=== PATIENT | male | born 1950 | race Caucasian/White ===

== ENCOUNTER 2017-10-27 02:37 | Outpatient (CLI) | payer MEDICARE, MEDICAID ==
[~2017-10-27 02:37] MED LIST: ASPI-1265 PO; ATOR20TA PO; CHOL100046 PO; CLON-528 PO; GABA-532 PO; HYDR12.5 PO; INSU100V12 SQ; LOSA100T28 PO; METO25TA6 PO; MULT-1179 PO; OMEP20CA10 PO; SITA50TA PO; VARE0.5T PO; VIT1TABL69 PO; [UNRECOGNIZED DRUG - CODE]
== END 2017-10-27 23:59 | disposition home or self-care (01) ==
LOC: DIABETIC 02:37
PROVIDERS: ATTEND Family Medicine
DX: E11.9 Type 2 diabetes mellitus without complications (principal); I10 Essential (primary) hypertension; J44.9 Chronic obstructive pulmonary disease, unspecified; F17.200 Nicotine dependence, unspecified, uncomplicated; Z86.19 Personal history of other infectious and parasitic diseases
CPT/HCPCS: G0108

== ENCOUNTER 2017-11-23 09:34 | Outpatient (CLI) | payer MEDICARE, MEDICAID ==
[~2017-11-23] VITALS: Ht 172.7 cm; Wt 95.0 kg
[2017-11-23 11:53] LABS: BASOPHILS # (AUTO) 0.1 X10'3 (0-0.2); BASOPHILS % (AUTO) 0.6 % (0-1); EOSINOPHILS # (AUTO) 0.7 X10'3 (0-0.9); EOSINOPHILS % (AUTO) 6.5 % (0-6); LYMPHOCYTES # (AUTO) 2.3 X10'3 (1.1-4.8); LYMPHOCYTES % (AUTO) 23.1 % (21-51); MEAN CORPUSCULAR HEMOGLOBIN 30.7 PG (27.0-31.0); MEAN CORPUSCULAR HGB CONC 33.4 % (33.0-36.5); MEAN PLATELET VOLUME 9.4 FL (7.4-10.4); MONOCYTES # (AUTO) 0.8 X10'3 (0-0.9); MONOCYTES % (AUTO) 8.2 % (2-12); NEUTROPHILS # (AUTO) 6.2 X10'3 (1.8-7.7); NEUTROPHILS % (AUTO) 61.6 % (42-75); PRE OP HEMATOCRIT 37.6 % (42.0-52.0); PRE OP HEMOGLOBIN 12.6 g/dL (14.0-17.9); PRE OP PLATELET COUNT 227 X10'3 (140-440); RED BLOOD COUNT 4.09 X10'6 (4.70-6.10); RED CELL DISTRIBUTION WIDTH 12.6 % (11.5-14.5)
[2017-11-23 12:05] LABS: PRE OP PROTIME 10.6 SECONDS (9.0-12.0)
[2017-11-23 12:15] LABS: ALBUMIN 4.1 G/DL (3.4-5.0); ALBUMIN/GLOBULIN RATIO 0.9 (1.1-1.5); ALKALINE PHOSPHATASE 107 IU/L (46-116); BLOOD UREA NITROGEN 58 MG/DL (7-18); BUN/CREATININE RATIO 12.3 (5.4-32.0); CALCIUM 9.8 MG/DL (8.5-10.1); CHLORIDE 101 MMOL/L (99-107); CREATININE 4.73 MG/DL (0.60-1.10); HEMOGLOBIN A1C 6.7 % (4.5-6.2); PRE OP ALT 14 U/L (30-65); PRE OP ANION GAP 10 (8-16); PRE OP AST 20 U/L (10-37); PRE OP BILIRUB, TOTAL 0.3 MG/DL (0.0-1.0); PRE OP GLUCOSE 164 MG/DL (70-104); PRE OP SODIUM 138 MMOL/L (135-145); TOTAL CARBON DIOXIDE 27.2 MMOL/L (24-32); TOTAL PROTEIN 8.8 G/DL (6.4-8.2); eGFR 12 ML/MIN
[2017-11-23 12:36] LABS: CLARITY,URINE CLEAR (Clear); COLOR,URINE STRAW (Yellow); GLUCOSE, URINE 100 mg/dl (Neg); KETONES,URINE NEGATIVE (Neg); LEUKOCYTE ESTERASE ,URINE NEGATIVE (Neg); NITRITES, URINE NEGATIVE (Neg); OCCULT BLOOD,URINE SMALL (Neg); PROTEIN,URINE 100 mg/dl (Neg); UROBILINOGEN,URINE 0.2 E.U/dL (0.2-1.0)
[2017-11-23 12:44] LABS: UA COLLECTION TYPE CLN CATCH MIDSTREAM
[2017-11-23 12:56] LABS: COARSE GRANULAR CAST 0-3 /LPF (NEGATIVE); HYALINE CASTS 0-3 /LPF (NEGATIVE); MUCUS STRANDS NONE SEEN /LPF (Neg); SQUAMOUS EPITHELIAL CELL,UR FEW /LPF (FEW); TRANSITIONAL EPI CELLS,URINE FEW /HPF
[2017-11-23 12:57] LABS: BACTERIA,URINE NONE SEEN /HPF (Neg); RBC,URINE NONE SEEN /HPF (0-2); RENAL CELLS, URINE FEW /HPF; WBC,URINE 0-4 /HPF (0-4)
[2017-11-23] MEDS ORDERED: TRAM50TA2 PO (13:01)
[2017-11-23] MEDS ORDERED: FOLI1TAB16 PO (13:03)
[2017-11-23] MEDS ORDERED: SERT25TA PO (13:04)
[2017-11-23] MEDS ORDERED: LANTUS SQ (13:18)
[2017-11-23] MEDS ORDERED: LINA5TAB4 PO (13:21)
[2017-11-24] MEDS ORDERED: normal saline 500ml IV soln 500 ML IV SCH (15:30)
[2017-11-25] MEDS ORDERED: ceFOXitin 2 GM ADDvantage bag 100 ML IV ONE (05:30)
[2017-11-25] MEDS ORDERED: famotidine 20mg tablet PO ONE (05:30)
[2017-11-25] MEDS ORDERED: metoprolol tartrate 12.5mg (1/2 tablet) PO ONE (05:30)
== END 2017-11-23 23:59 | disposition home or self-care (01) ==
LOC: PRE-OP 09:34 → EDSTATUS 11-25 08:30
PROVIDERS: ATTEND Surgery
DX: Z01.818 Encounter for other preprocedural examination (principal); R94.31 Abnormal electrocardiogram [ECG] [EKG]; B19.20 Unspecified viral hepatitis C without hepatic coma; E11.22 Type 2 diabetes mellitus with diabetic chronic kidney disease; I12.0 Hypertensive chronic kidney disease with stage 5 chronic kidney disease or end stage renal disease; N18.5 Chronic kidney disease, stage 5; J45.909 Unspecified asthma, uncomplicated; D64.9 Anemia, unspecified; E11.41 Type 2 diabetes mellitus with diabetic mononeuropathy; Z79.891 Long term (current) use of opiate analgesic; Z87.891 Personal history of nicotine dependence; Z68.24 Body mass index [BMI] 24.0-24.9, adult; Z20.1 Contact with and (suspected) exposure to tuberculosis
CPT/HCPCS: 36415; 71046; 80053; 81001; 83036; 85025; 85610; 85730; 93005; J7030

== ENCOUNTER 2017-12-21 10:09 | Outpatient (CLI) | payer MEDICARE, MEDICAID ==
[~2017-12-21 10:09] MED LIST changes: -CHOL100046 PO; -CLON-528 PO; +FOLI1TAB16 PO; -HYDR12.5 PO; -INSU100V12 SQ; +LANTUS SQ; +LINA5TAB4 PO; +SERT25TA PO; -SITA50TA PO; +TRAM50TA2 PO; -VARE0.5T PO; -[UNRECOGNIZED DRUG - CODE]
== END 2017-12-21 23:59 | disposition home or self-care (01) ==
LOC: VAS 10:09
PROVIDERS: ATTEND Surgery
DX: Z01.810 Encounter for preprocedural cardiovascular examination (principal); E11.22 Type 2 diabetes mellitus with diabetic chronic kidney disease; I12.0 Hypertensive chronic kidney disease with stage 5 chronic kidney disease or end stage renal disease; N18.6 End stage renal disease; J44.9 Chronic obstructive pulmonary disease, unspecified; F17.200 Nicotine dependence, unspecified, uncomplicated; Z86.19 Personal history of other infectious and parasitic diseases
CPT/HCPCS: 93930; 93970

== ENCOUNTER 2018-01-13 07:43 | Day surgery (SDC) | payer MEDICARE, MEDICAID ==
[2018-01-13] VITALS (8 sets, daily range): BP systolic 124–161; BP diastolic 62–69
[~2018-01-13] VITALS: Ht 172.7 cm; Wt 76.7 kg
[~2018-01-13 07:43] MED LIST changes: +DOCUMENT DATE & TIME OF BETA-BLOCKER PO ONE; +cefazolin/dext.iso 2gm/50ml 50 ML IV ONE; +famotidine 20mg tablet PO ONE; +ringers solution, lacted 1,000 ML IV SCH
[2018-01-13] MEDS ORDERED: LIDOcaine 1% (10mg/ml) 2ml vial ONE (08:23)
[2018-01-13 09:03] LABS: BASOPHILS % (AUTO) 0.6 % (0-1); EOSINOPHILS # (AUTO) 0.9 X10'3 (0-0.9); EOSINOPHILS % (AUTO) 10.5 % (0-6); HEMATOCRIT 31.3 % (42.0-52.0); HEMOGLOBIN 10.6 g/dl (14.0-17.9); LYMPHOCYTES # (AUTO) 2.9 X10'3 (1.1-4.8); LYMPHOCYTES % (AUTO) 35.6 % (21-51); MEAN CORPUSCULAR HEMOGLOBIN 31.2 PG (27.0-31.0); MEAN CORPUSCULAR HGB CONC 33.8 % (33.0-36.5); MEAN CORPUSCULAR VOLUME 92.3 FL (78-98); MEAN PLATELET VOLUME 9.4 FL (7.4-10.4); MONOCYTES # (AUTO) 0.7 X10'3 (0-0.9); MONOCYTES % (AUTO) 9.2 % (2-12); NEUTROPHILS # (AUTO) 3.6 X10'3 (1.8-7.7); NEUTROPHILS % (AUTO) 44.1 % (42-75); PLATELET COUNT 164 X10'3 (140-440); RED BLOOD COUNT 3.39 X10'6 (4.70-6.10); RED CELL DISTRIBUTION WIDTH 13.7 % (11.5-14.5); WHITE BLOOD COUNT 8.1 X10'3 (4.5-11.0)
[2018-01-13 09:17] LABS: ALANINE AMINOTRANSFERASE 10 U/L (12-78); ALBUMIN 3.6 G/DL (3.4-5.0); ALBUMIN/GLOBULIN RATIO 0.9 (1.1-1.5); ALKALINE PHOSPHATASE 95 IU/L (46-116); ANION GAP 11 (8-16); ASPARTATE AMINO TRANSFERASE 11 U/L (10-37); BILIRUBIN,TOTAL 0.2 MG/DL (0.1-1.0); BLOOD UREA NITROGEN 66 MG/DL (7-18); CALCIUM 8.7 MG/DL (8.5-10.1); CHLORIDE 108 MMOL/L (99-107); CREATININE 5.08 MG/DL (0.60-1.10); GLUCOSE 75 MG/DL (70-104); POTASSIUM 4.8 MMOL/L (3.5-5.1); SODIUM 142 MMOL/L (135-145); TOTAL CARBON DIOXIDE 22.6 MMOL/L (24-32); TOTAL PROTEIN 7.6 G/DL (6.4-8.2); eGFR 11 ML/MIN
[2018-01-13] MEDS ORDERED: epiNEPHrine 1 mg/ml inj ONE (11:10)
[2018-01-13] MEDS ORDERED: LIDOcaine 1% 30ml vial 30 ML ONE (11:10)
[2018-01-13] MEDS ORDERED: heparin 10,000 units/1 ML INJ ONE (11:10)
[2018-01-13] MEDS ORDERED: midazolam 2 mg/2 ml injection ONE (11:53)
[2018-01-13] MEDS ORDERED: fentaNYL/PF 50MCG/1 ML 2ML syringe ONE ×2 (11:53→12:05)
[2018-01-13] MEDS ORDERED: ketamine 10mg/ml 20ml inj ONE (11:59)
[2018-01-13] MEDS ORDERED: ringers solution, lacted 1,000 ML IV SCH (12:27)
[2018-01-13] MEDS ORDERED: proCHLORperazine 10 MG/2 ml inj IV PRN (12:30)
[2018-01-13] MEDS ORDERED: morphine 2 MG/ML inj. syringe IV PRN ×2 (12:30)
[2018-01-13] MEDS ORDERED: ondansetron/PF 4mg/2ml inj IV PRN (12:30)
[2018-01-13] MEDS ORDERED: ondansetron/PF 4mg/2ml inj ONE (12:35)
[2018-01-13] MEDS ORDERED: BUPIVAcaine/PF 2.5 mg/ml (0.25%) 30ml vial IJ ONE (14:51)
== END 2018-01-13 13:30 | disposition home or self-care (01) ==
LOC: PAS 07:43
PROVIDERS: ATTEND Surgery
DX: E11.22 Type 2 diabetes mellitus with diabetic chronic kidney disease (principal); I12.0 Hypertensive chronic kidney disease with stage 5 chronic kidney disease or end stage renal disease; N18.5 Chronic kidney disease, stage 5; E11.41 Type 2 diabetes mellitus with diabetic mononeuropathy; J45.909 Unspecified asthma, uncomplicated; N04.9 Nephrotic syndrome with unspecified morphologic changes; Z86.11 Personal history of tuberculosis; Z79.82 Long term (current) use of aspirin; Z79.4 Long term (current) use of insulin; Z88.6 Allergy status to analgesic agent
CPT/HCPCS: 36415; 36821; 80053; 82948; 85025; J0171; J0690; J1644; J2250; J2405; J3010; J3490; J7030; J7120; A7000

== ENCOUNTER 2018-07-02 06:22 | Day surgery (SDC) | payer MEDICARE, MEDICAID ==
[~2018-07-02] VITALS: Ht 172.7 cm; Wt 75.3 kg
[~2018-07-02 06:22] MED LIST changes: -DOCUMENT DATE & TIME OF BETA-BLOCKER PO ONE; -cefazolin/dext.iso 2gm/50ml 50 ML IV ONE; -famotidine 20mg tablet PO ONE; -ringers solution, lacted 1,000 ML IV SCH
[2018-07-02] MEDS ORDERED: normal saline 1000ml 1,000 ML IV PRN (06:45)
[2018-07-02] MEDS ORDERED: DULA0.75 (06:57)
[2018-07-02] MEDS ORDERED: INSU100I8 SQ (06:57)
[2018-07-02] MEDS ORDERED: TERB12GE (06:57)
[2018-07-02] MEDS ORDERED: vitamin d (06:57)
[2018-07-02] MEDS ORDERED: ACET325T55 (06:57)
[2018-07-02] MEDS ORDERED: NITR0.4T48 SL (06:57)
[2018-07-02 07:01] VITALS: BP 168/83
[2018-07-02] MEDS ORDERED: LIDOcaine 1%/PF 5ML 10 MG/ML VIAL ONE (08:15)
[2018-07-02] MEDS ORDERED: iohexol 300mg/ml 100ml inj. ONE (08:16)
[2018-07-02] MEDS ORDERED: midazolam 2 mg/2 ml injection ONE (08:27)
[2018-07-02] MEDS ORDERED: fentaNYL/PF 50MCG/1 ML 2ML syringe ONE (08:27)
[2018-07-02] MEDS ORDERED: heparin 1,000 UNITS/NS 500ml 500 ML ONE (08:28)
[2018-07-02] MEDS ORDERED: normal saline 1000ml 1,000 ML IV SCH (08:46)
[2018-07-02] MEDS ORDERED: fentaNYL/PF 50MCG/1 ML 2ML syringe IV PRN (08:50)
[2018-07-02] MEDS ORDERED: hydrALAZINE 20mg/ml inj. IV ONE ×2 (08:50→08:52)
[2018-07-02] MEDS ORDERED: heparin 1,000 UNITS/NS 500ml 500 ML ICATH ONE (08:50)
[2018-07-02] MEDS ORDERED: midazolam 2 mg/2 ml injection IV PRN (08:50)
[2018-07-02] MEDS ORDERED: LIDOcaine 1%/PF 5ML 10 MG/ML VIAL SQ ONE (08:50)
[2018-07-02 09:15] VITALS: BP_DIAS 186
[2018-07-02 09:30] VITALS: BP_DIAS 187
[2018-07-02 09:45] VITALS: BP_DIAS 183
[2018-07-02 10:00] VITALS: BP_DIAS 175
[2018-07-02 10:15] VITALS: BP_DIAS 176
== END 2018-07-02 10:32 | disposition home or self-care (01) ==
LOC: SSTAY O 06:22
PROVIDERS: ATTEND Radiology Diagnostic Radiology
DX: T82.898A Other specified complication of vascular prosthetic devices, implants and grafts, initial encounter (principal); Y83.2 Surgical operation with anastomosis, bypass or graft as the cause of abnormal reaction of the patient, or of later complication, without mention of misadventure at the time of the procedure; Y92.89 Other specified places as the place of occurrence of the external cause; E11.22 Type 2 diabetes mellitus with diabetic chronic kidney disease; I12.0 Hypertensive chronic kidney disease with stage 5 chronic kidney disease or end stage renal disease; N18.6 End stage renal disease; J44.9 Chronic obstructive pulmonary disease, unspecified; E11.41 Type 2 diabetes mellitus with diabetic mononeuropathy; E78.5 Hyperlipidemia, unspecified; I25.10 Atherosclerotic heart disease of native coronary artery without angina pectoris; K21.9 Gastro-esophageal reflux disease without esophagitis; F10.21 Alcohol dependence, in remission; F41.8 Other specified anxiety disorders; Z88.6 Allergy status to analgesic agent; Z86.11 Personal history of tuberculosis; Z88.5 Allergy status to narcotic agent; Z99.2 Dependence on renal dialysis; Z79.891 Long term (current) use of opiate analgesic; Z79.4 Long term (current) use of insulin; Z79.82 Long term (current) use of aspirin; Z87.891 Personal history of nicotine dependence; Z86.19 Personal history of other infectious and parasitic diseases; Z98.890 Other specified postprocedural states; Z79.899 Other long term (current) drug therapy; Z83.3 Family history of diabetes mellitus
CPT/HCPCS: 36901; 82948; 99152; 99153; C1769; C1894; J0360; J1644; J2001; J2250; J3010; J7030; Q9967; A4620

== ENCOUNTER 2019-03-03 07:19 | Outpatient (CLI) | payer MEDICARE, MEDICAID ==
[~2019-03-03 07:19] MED LIST changes: +ACET325T55; +DULA0.75; +INSU100I8 SQ; -LOSA100T28 PO; +LOSA100T57 PO; +NITR0.4T48 SL; -SERT25TA PO; +TERB12GE; +vitamin d
== END 2019-03-03 23:59 | disposition home or self-care (01) ==
LOC: DIABETIC 07:19
PROVIDERS: ATTEND Family Medicine
DX: E11.9 Type 2 diabetes mellitus without complications (principal); J44.9 Chronic obstructive pulmonary disease, unspecified; I10 Essential (primary) hypertension; Z87.891 Personal history of nicotine dependence; Z79.4 Long term (current) use of insulin
CPT/HCPCS: G0108

== ENCOUNTER 2021-01-24 07:43 | Day surgery (SDC) | payer MEDICARE, MEDICAID ==
[2021-01-23 11:00] LABS: PARTIAL THROMBOPLASTIN TIME 28 SECONDS (22-32)
[2021-01-23 11:05] LABS: BASOPHILS # (AUTO) 0.1 X10'3 (0-0.2); BASOPHILS % (AUTO) 0.7 % (0-1); EOSINOPHILS # (AUTO) 0.4 X10'3 (0-0.9); EOSINOPHILS % (AUTO) 4.2 % (0-6); HEMATOCRIT 35.8 % (42.0-52.0); HEMOGLOBIN 11.9 g/dl (14.0-17.9); LYMPHOCYTES # (AUTO) 1.8 X10'3 (1.1-4.8); LYMPHOCYTES % (AUTO) 17.8 % (21-51); MEAN CORPUSCULAR HEMOGLOBIN 31.7 PG (27.0-31.0); MEAN CORPUSCULAR HGB CONC 33.1 g/dL (33.0-36.5); MEAN CORPUSCULAR VOLUME 95.6 FL (78-98); MONOCYTES # (AUTO) 0.8 X10'3 (0-0.9); MONOCYTES % (AUTO) 7.8 % (2-12); NEUTROPHILS # (AUTO) 7.2 X10'3 (1.8-7.7); NEUTROPHILS % (AUTO) 69.5 % (42-75); PLATELET COUNT 172 X10'3 (140-440); RED BLOOD COUNT 3.74 X10'6 (4.70-6.10); RED CELL DISTRIBUTION WIDTH 13.5 % (11.5-14.5); WHITE BLOOD COUNT 10.3 X10'3 (4.5-11.0)
[2021-01-23 11:24] LABS: ALBUMIN 3.3 G/DL (3.4-5.0); ANION GAP 8 (8-16); BLOOD UREA NITROGEN 29 MG/DL (7-18); CALCIUM 9.4 MG/DL (8.5-10.1); CHLORIDE 97 MMOL/L (99-107); CREATININE 5.85 MG/DL (0.60-1.10); GLUCOSE 88 MG/DL (70-104); POTASSIUM 3.9 MMOL/L (3.5-5.1); SODIUM 141 MMOL/L (135-145); TOTAL CARBON DIOXIDE 36.1 MMOL/L (24-32); eGFR 10 ML/MIN
[~2021-01-24] VITALS: Ht 172.7 cm; Wt 67.0 kg
[2021-01-24] VITALS (11 sets, daily range): BP systolic 128–154; BP diastolic 49–89
[~2021-01-24 07:43] MED LIST changes: -OMEP20CA10 PO; +OMEP20CA15 PO
[2021-01-24] MEDS ORDERED: dextrose 50%-water 50ml dispensing syringe IV STA (08:06)
[2021-01-24] MEDS ORDERED: dextrose 50%-water 50ml dispensing syringe IV ONE (08:09)
[2021-01-24] MEDS ORDERED: sodium bicarbonate (8.4%) inj. 150 ML in dextrose 5%-water 1,000 ML IV ONE (08:15)
[2021-01-24] MEDS ORDERED: LORazepam 0.5 MG tablet PO PRN (08:15)
[2021-01-24] MEDS ORDERED: diphenhydrAMINE 25mg capsule PO PRN (08:15)
[2021-01-24] MEDS ORDERED: LIDOcaine/PRILOcaine 5gm cream TP ONE (08:20)
[2021-01-24] MEDS ORDERED: acetylcysteine 200 MG/ml 4ml vial PO PRN (08:20)
[2021-01-24] MEDS ORDERED: SITA50TA PO (08:35)
[2021-01-24] MEDS ORDERED: HYDR12.55 PO (08:37)
[2021-01-24] MEDS ORDERED: BUDE180A INH (08:38)
[2021-01-24] MEDS ORDERED: fentaNYL/PF 50MCG/1 ML 2ML syringe ONE (10:17)
[2021-01-24] MEDS ORDERED: nitroGLYCERIN-Tridil 50MG/D5W 250 ML IV ONE (10:17)
[2021-01-24] MEDS ORDERED: LIDOcaine 1% (10mg/ml)w/preservative injection 20ml MDV ONE (10:17)
[2021-01-24] MEDS ORDERED: midazolam 1 mg/ML 2ml injection ONE (10:17)
[2021-01-24] MEDS ORDERED: iohexol 350MG/ML 100ml bottle IV ONE (10:18)
[2021-01-24] MEDS ORDERED: heparin 1,000unit/ml 10ml vial 10 ML ONE (10:18)
[2021-01-24] MEDS ORDERED: iohexol 350 MG/ML 50ML vial IV ONE (10:18)
== END 2021-01-24 18:00 | disposition home or self-care (01) ==
LOC: SSTAY O 07:43
PROVIDERS: ATTEND Internal Medicine Cardiovascular Disease
DX: Z01.810 Encounter for preprocedural cardiovascular examination (principal); I25.10 Atherosclerotic heart disease of native coronary artery without angina pectoris; I25.82 Chronic total occlusion of coronary artery; I65.21 Occlusion and stenosis of right carotid artery; J44.9 Chronic obstructive pulmonary disease, unspecified; E11.22 Type 2 diabetes mellitus with diabetic chronic kidney disease; I12.9 Hypertensive chronic kidney disease with stage 1 through stage 4 chronic kidney disease, or unspecified chronic kidney disease; N18.9 Chronic kidney disease, unspecified; E78.5 Hyperlipidemia, unspecified; M10.9 Gout, unspecified; E55.9 Vitamin D deficiency, unspecified; G89.29 Other chronic pain; K21.9 Gastro-esophageal reflux disease without esophagitis; F32.9 Major depressive disorder, single episode, unspecified; Z79.4 Long term (current) use of insulin; Z79.82 Long term (current) use of aspirin; Z79.899 Other long term (current) drug therapy; Z98.890 Other specified postprocedural states; Z88.5 Allergy status to narcotic agent; Z87.891 Personal history of nicotine dependence; Z99.2 Dependence on renal dialysis
CPT/HCPCS: 36415; 76937; 80048; 82948; 85025; 85610; 85730; 93005; 93460; 99152; 99153; C1760; C1769; C1894; J1644; J2001; J2250; J3010; Q0163; Q9967; A4620; A6258; C1751; J3490